=== PATIENT | female | born 1980 | race Caucasian/White ===

== ENCOUNTER 2019-05-19 22:38 | Emergency (ER) | payer BC ==
[~2019-05-19] VITALS: Ht 162.6 cm; Wt 44.0 kg
[~2019-05-19 22:38] MED LIST: ACET500C5 PO; ONDA4TAB14 PO; ORA20G7 BUCCAL
[2019-05-19 22:46] VITALS: BP 128/95; PULSE 101; RESP 20; Ht 162.6 cm; Wt 44.0 kg
== END 2019-05-20 00:10 | disposition home or self-care (01) ==
LOC: FTE 22:38
DX: K08.89 Other specified disorders of teeth and supporting structures (principal); R11.0 Nausea
CPT/HCPCS: 81025; 99283; Z7610